=== PATIENT | male | born 1950 | race Caucasian/White ===

== ENCOUNTER 2022-04-28 09:06 | Outpatient (CLI) | payer OTHER, SELFPAY ==
--- NOTE | 2022-04-28 09:15 | MR_ITS ---
[address] [address] Phone:?[phone] Fax:?[phone] Referring Physician Information: Adria Mcelroy M.D. [address] [address] Phone:?[phone] Fax:?[phone] Patient:Johana Pineda D.O.B:?1950 Sex:?Male Phone:?[phone] [facility] MRN:?[id number] Exam Date:?04/28/2022 ? EXAM: MRI EXAMINATION OF THE RIGHT SHOULDER CLINICAL INFORMATION: Right shoulder pain. History of injury. History of surgery. Evaluate rotator cuff tear. TECHNICAL INFORMATION: Coronal STIR as well as axial, sagittal and coronal PD and T2-weighted images were acquired. INTERPRETATION: Bones: There is no Hill-Sachs impaction deformity. There are postsurgical changes of supraspinatus tendon repair surgery. No evidence for an occult fracture or AVN. Rotator Cuff: Series 8 images 7 and 8 demonstrate a 1.5 cm AP segment of full- thickness and near full-thickness tearing involving the mid to anterior supraspinatus tendon insertion. Tendon retraction is to approximately the mid humeral head level. There is no evidence for muscle belly atrophy. There is a 1.1 cm AP undersurface partial-thickness tear involving the anterior infraspinatus tendon which involves two thirds of the tendon fiber thickness. The teres minor tendon is intact. Broad full-thickness tear and apparent complete disruption of the expected subscapularis tendon insertion. There are moderate changes of subscapularis muscle belly atrophy. Coracoacromial arch: There is an apparent prior surgical change of acromioplasty. The bony acromiohumeral interval is measuring 7 mm. There is no thickening identified of the coracoacromial ligament. Acromioclavicular joint: There is an apparent prior surgical change involving the AC joint. No deformity of the underlying supraspinatus tendon. Biceps tendon: Absent visualization of the intra-articular long head biceps tendon in keeping with a more chronic disruption. Glenohumeral joint and labrum: There is a moderate glenohumeral joint effusion. Mild synovitis within the joint. Osteochondral surfaces appear relatively preserved. There is marked blunting involving the superior aspect of the labrum. Blunting is also identified throughout the anterior labrum. No discrete paralabral cyst is identified. CONCLUSION: 1. Postsurgical appearance of supraspinatus tendon repair surgery. There is a moderate-sized full-thickness and near full-thickness tear involving the mid to anterior supraspinatus tendon insertion with tendon retraction to the mid humeral head level. No muscle belly atrophy. 2. Broad full-thickness tear and apparent complete disruption of the subscapularis tendon. There are moderate changes of muscle belly atrophy. 3. There is a small to moderate-sized undersurface partial-thickness tear of the anterior infraspinatus tendon which involves two thirds of the tendon fiber thickness. 4. The subacromial space appears adequately decompressed following apparent prior surgical change of acromioplasty and partial AC joint resection. 5. Chronic intra-articular long head biceps tendon disruption. 6. No appreciable glenohumeral chondromalacia. There is a moderate joint effusion. KES Electronically signed on 04/28/2022 12:49:00 PM by Carlton Villafana M.D.
== END 2022-04-28 09:07 | disposition home or self-care (01) ==
PROVIDERS: Visit Provider Orthopaedic Surgery
DX: M25.511 Pain in right shoulder (principal); M75.101 Unspecified rotator cuff tear or rupture of right shoulder, not specified as traumatic; S46.911A Strain of unspecified muscle, fascia and tendon at shoulder and upper arm level, right arm, initial encounter; M25.411 Effusion, right shoulder
CPT/HCPCS: 73221

== ENCOUNTER 2022-08-06 11:23 | Day surgery (SDC) | payer OTHER, SELFPAY ==
--- NOTE | 2022-08-04 09:19 | PC.SOCIAL ---
Social work: Spoke with pt by phone regarding plans after surgery on 08/06/22. He states he is hoping to stay at the hospital overnight after surgery as he has no one to stay with him at home that night. He plans for his daughter to pick him up on Wednesday and stay with him that day to assist if needed. Pt is not concerned about ongoing care at home and was not expecting a facility stay. Pt states he has already discussed this concern with the physician and expects to stay at the hospital overnight. Pt is aware of how to contact social work job titles if needed.
[2022-08-06] VITALS (25 sets, daily range): BP systolic 81–122; BP diastolic 45–66; PULSE 45–65; RESP 12–16; TEMP 35.8–36.7; O2SAT 91–97; BMI 26.4
[2022-08-06] MEDS: LACTATED RINGERS 1000 ML 1,000 ML 100 ML IV ×2 (12:15→14:00)
[2022-08-06] MEDS: SODIUM CHLORIDE 0.9 % (FLUSH) 10 ML SYRINGE IVF (12:15)
[2022-08-06] MEDS: OXYCODONE (CR) 10 MG TAB.ER.12H PO (12:25)
[2022-08-06] MEDS: ACETAMINOPHEN 500 MG TABLET 1000 MG PO (12:25)
[2022-08-06] MEDS: fentaNYL 100 MCG/2 ML inj IVP (12:28)
[2022-08-06] MEDS: CELECOXIB 200 MG CAPSULE PO (12:28)
[2022-08-06] MEDS: MIDAZOLAM HCL 1 MG/ML inj IVP (12:30)
--- NOTE | 2022-08-06 12:58 | SUR.PREOP ---
TIME?OUT:?1226 PT/RN/MDA?VERIFICATION?OF?SURGICAL?SITE,?PROCEDURE,?AND?CONSENT OBTAINED?PRIOR?TO?INVASIVE?PROCEDURE. All in agreement.
[2022-08-06] MEDS: CEFAZOLIN 2 GM INJ IVP (12:59)
[2022-08-06] MEDS: EPINEPHrine 1 MG in SODIUM CHLORIDE IRRIG SOLUTION 3,000 ML 9,003 MG IRRIGATION ×3 (13:25→14:15)
--- NOTE | 2022-08-06 14:47 | W.ANESCHARGE ---
Anesthesia Charges Start Date/Time Anesthesia Start Date: 08/06/22 Anesthesia Start Time: 12:51 Stop Date/Time Anesthesia Stop Date: 08/06/22 Anesthesia Stop Time: 15:23 Summary Emergency: No Extremes of Age: Over 72-CPT 74774
--- NOTE | 2022-08-06 14:47 | W.PM.NB ---
Nerve Block Nerve Block Date Seen: 08/06/22 Type of block requested by surgeon for post-operative analgesia: interscalene Side: right Time out performed: Yes Verification of patient name: Yes Verification of date of : Yes Site marking: site marked Name of person performing procedure: Robert Assistants, if any: Collin Continuous monitoring Was continuous monitoring of O2 sat, B/P, reactor fueling supervisor, recorded every 15 minutes?: Yes Procedure Checklist: sterile prep, needles and gloves Ultrasound guided. Images saved: Yes Medications given in 5ml increments after negative aspiration: Ropivicaine %: 0.5 mL: 20 Needle gauge: 22 Decadron (mg): 10 Precedex (mcg): 25 Patient tolerated procedure well: Yes Block Charges Block Charge (with Pro Fee): Brachial Plexus Use of Ultrasound Machine for Block: Yes- US Guidance/pain block
--- NOTE | 2022-08-06 15:08 | P.ORPRC_ITS ---
Procedure Note Date of procedure: 08/06/22 Procedure: SURGEON: Adria Mcelroy MD MANUFACTURING ASSEMBLER: SAAD Yuen PREOPERATIVE DIAGNOSIS: Recurrent Right shoulder rotator cuff tear POSTOPERATIVE DIAGNOSIS: Recurrent Right shoulder rotator cuff tear NAME OF OPERATION: Right shoulder arthroscopic partial rotator cuff repair, mini open partial rotator cuff repair, lysis of adhesions, glenohumeral joint debridement ANESTHESIA: Supraclavicular block plus general endotracheal ESTIMATED BLOOD LOSS: 5 mL COMPLICATIONS: None SPECIMENS: None DRAINS: None PREOPERATIVE ANTIBIOTICS: Ancef 2 grams INDICATIONS: The patient is a 72-year-old male with a history of right shoulder pain secondary to the above diagnoses. Despite appropriate non operative management, they continue to have symptoms. Operative intervention was recommended. The risks, benefits and expected outcomes were discussed in detail. These included but were not limited to: Infection, bleeding, injury to blood vessel or nerve, venous thromboembolism. All questions were answered to their satisfaction. PROCEDURE: A supraclavicular block was placed by Anesthesia. General anesthesia was administered. The patient was placed in the high beach chair position. The right shoulder was prepped and draped in the usual sterile fashion. The glenohumeral joint was infiltrated with 20 mL of normal saline with epinephrine. The posterior portal was established, the arthroscope was introduced. The anterior portal was established, Diagnostic arthroscopy was performed with findings as follows: The biceps is torn and retracted out of the field of view. The anterior, posterior and superior labrum are normal. Articular surfaces on the humeral head and glenoid showed diffuse grade 2/3 change. There are no loose bodies. There is a full-thickness tear of the supraspinatus, infraspinatus and subscap with retraction. The joint was debrided with the shaver. The arthroscope was placed in the subacromial space, the lateral portal was established. The Arthrex Ferron was used to dissect the acromion free. There is a marked amount of scar covering the acromion which was mobilized with the Ferron. An accessory anterolateral portal was placed. The subacromial/subdeltoid bursa was aggressively debrided. There is a full-thickness tear of the supraspinatus, infraspinatus and subscap with retraction near the glenoid. The cough is not mobile. It was mobilized on the bursal surface with the elevator. It was mobilized on the joint surface with Ferron and the elevator. We then placed 3 margin convergence sutures using the scorpion. Arthroscopic knot tying was done. This advanced apex of the rotator cuff tear nearly to the anatomic footprint. Arthroscopic instruments were removed. The accessory anterolateral portal was extended proximally and distally, subcutaneous dissection was taken with electrocautery to the deltoid. The deltoid was divided in line with its fibers. The static retractor was placed. The subacromial/subdeltoid bursa was debrided with the Dangelo scissors. The greater tuberosity was debrided to punctate bleeding bone using the arthroscopic rongeur. Two Arthrex BioComposite SwiveLock anchors were placed just off the articular surface. Both limbs of the FiberWire and fiber tape were passed using the scorpion. A fiber link was placed in the leading edge of the rotator cuff x2. While attempting to pass FiberTape in the anterior anchor, the sutures securing the entire anterior leaflet of rotator cuff pulled through. This anterior leaflet was quite poor quality tissue and retracted anteriorly and medially and was now irreparable. The posterior leaflet of the rotator cuff tear was far better quality tissue. Therefore, we elected to proceed with a partial repair. We tied the posterior anchor FiberWire sutures over the rotator cuff. We then bridged the taped in this anchor and fiber links on the leading edge of the rotator cuff to a single, lateral roll SwiveLock anchor. This provides a partial repair of the posterior aspect of the rotator cuff, primarily the infraspinatus. There is no tension on the repair with the shoulder at 0? abduction. The wound was irrigated with normal saline off the pump. The deltoid was repaired with an 0 Vicryl in an interrupted [id number] fashion. Subcutaneous tissues were closed with a 3-0 Vicryl. Skin was closed with a 3-0 Monocryl in a subcuticular fashion. A dry dressing, polar care and sling were applied. Sponge and needle counts were correct x2. The patient tolerated the procedure well. There were no apparent complications. They were carefully transferred to the hospital bed and taken to the postanesthesia care unit in satisfactory condition. PLAN: The patient will be discharged to home. Active range of motion of the shoulder will be allowed when comfortable. He can use the sling as needed for discomfort. They can work on active range of motion of the elbow, wrist and fingers. They will follow up in the office next week for a wound check.
--- NOTE | 2022-08-06 15:24 | W.ANESCHARGE ---
Anesthesia Charges Start Date/Time Anesthesia Start Date: 08/06/22 Anesthesia Start Time: 12:51 Stop Date/Time Anesthesia Stop Date: 08/06/22 Anesthesia Stop Time: 15:23 Summary Emergency: No Extremes of Age: Over 72-CPT [address]
--- NOTE | 2022-08-06 16:06 | SUR.PHASEI ---
Patient was approved to go to Med Surg by Jeanmarie Corey CRNA with having hypotension but remaining stable and asymptomatic.
--- NOTE | 2022-08-06 18:05 | PM.IMCN1 ---
Date of Consult Patient: Emily Patient Consult date: 08/06/22 Primary Care Provider: Huey Spencer MD Consult Narrative Reason for consult: Medical management of comorbidities Narrative: Danny Pineda is a 72 year old male who presented to the hospital today for an elective Right shoulder arthroscopic partial rotator cuff repair, mini open partial rotator cuff repair, lysis of adhesions, and glenohumeral joint debridement with Dr. Mcelroy of Orthopedic Surgery. There were no surgical or anesthetic complications noted during procedure. Patient's H&P reviewed, PCP is Dr. Spencer at [facility]. No concerns identified on preoperative H&P, outpatient blood pressure 110/62. Past medical history significant for: History of a thoracic aortic aneurysm repair, aortic valve repair with bioprosthetic valve, melanoma of the right elbow, esophageal stricture (s/p dilation x3) and diverticulosis. He had a diverticular bleed in 2014, requiring blood transfusions. History of blood clots: No Postoperative plan: Home with daughter for assistance as needed. Patient is generally healthy, takes no daily prescription medications. 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 He is a nonsmoker, nonalcohol user. Review of Systems Status of ROS: Reports: 10 or more systems reviewed and unremarkable except as noted in History and below 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) Status post right rotator cuff repair (08/20/06) Social History Smoking Status: Never smoker How often do you have a drink containing alcohol: never AUDIT-C Alcohol total score: 0 Non-prescribed substance use: denies use Caffeine: No service: No Meds Home Medications and Allergies Home Medications Medication Instructions Recorded Confirmed Type ascorbic acid (vitamin C) 500 mg 500 mg PO DAILY 08/04/22 08/06/22 History tablet aspirin 81 mg chewable tablet 1 tab PO DAILY 08/04/22 08/06/22 History fluorouracil 5 % topical cream 1 applic topical BID 08/04/22 08/04/22 History (Efudex) lysine 500 mg tablet 500 mg PO BID 08/04/22 08/06/22 History omega 5-ysf-net-fish oil 300 1 cap PO DAILY 08/04/22 08/04/22 History mg-1,000 mg capsule (Fish Oil) phytonadione (vitamin K1) 100 mcg 100 mcg PO DAILY 08/04/22 08/06/22 History tablet potassium gluconate 595 mg (99 mg) 595 mg PO DAILY 08/04/22 08/06/22 History tablet tadalafil 10 mg tablet mg PRN PRN 08/04/22 History vitamin B complex 1 cap PO DAILY 08/04/22 08/06/22 History vitamin E (dl, acetate) 180 mg 180 mg PO DAILY 08/04/22 08/06/22 History (400 unit) capsule zinc sulfate 50 mg zinc (220 mg) 50 mg PO DAILY 08/04/22 08/06/22 History capsule Allergies Allergy/AdvReac Type Severity Reaction Status Date / Time codeine Allergy Mild GI upset Verified 05/06/22 13:51 Exam Narrative: Exam Narrative: GEN: Alert and oriented, nontoxic HEENT: Normal external ears, EOMIs bilaterally CV: RRR R: LCTA bilaterally without concerning wheezing, rales, or rhonchi Ext: wwp, no concerning edema, wearing sling on right upper extremity Skin: No concerning skin lesions or rashes on exposed skin Neuro: Nonfocal Psych: Appropriate Const: Vital Signs, click to edit/add: Vital Signs - 24 hr 08/06/22 12:23 08/06/22 12:33 08/06/22 12:37 Temperature 98.0 F Pulse Rate 65 45 L 49 L Pulse Rate [Left P ulse Oximeter] Respiratory Rate 16 16 16 Blood Pressure 122/65 118/63 113/66 Blood Pressure [Le ft Arm] Pulse Oximetry 96 96 96 Oxygen Delivery Me thod Room Air Nasal Cannula Room Air Oxygen Flow Rate 2 2 08/06/22 15:19 08/06/22 15:25 08/06/22 15:30 Temperature 97.4 F L Pulse Rate 60 64 57 L Pulse Rate [Left P ulse Oximeter] Respiratory Rate 14 14 12 Blood Pressure 99/53 L 97/55 L 91/55 L Blood Pressure [Le ft Arm] Pulse Oximetry 92 92 93 Oxygen Delivery Me thod Room Air Room Air Room Air Oxygen Flow Rate 08/06/22 15:35 08/06/22 15:45 08/06/22 16:05 Temperature 97.8 F Pulse Rate 57 L 57 L 56 L Pulse Rate [Left P ulse Oximeter] Respiratory Rate 12 12 12 Blood Pressure 95/55 L 91/56 L 96/52 L Blood Pressure [Le ft Arm] Pulse Oximetry 92 92 94 Oxygen Delivery Me thod Room Air Room Air Room Air Oxygen Flow Rate 08/06/22 15:40 08/06/22 15:50 08/06/22 15:55 Temperature Pulse Rate 57 L 55 L 56 L Pulse Rate [Left P ulse Oximeter] Respiratory Rate 12 12 12 Blood Pressure 93/51 L 87/54 L 99/54 L Blood Pressure [Le ft Arm] Pulse Oximetry 92 92 93 Oxygen Delivery Me thod Room Air Room Air Room Air Oxygen Flow Rate 08/06/22 16:00 08/06/22 16:14 08/06/22 16:20 Temperature 97.3 F L 96.8 F L Pulse Rate 58 L 56 L Pulse Rate [Left P ulse Oximeter] Respiratory Rate 12 12 Blood Pressure 81/56 L Blood Pressure [Le ft Arm] 97/57 L 93/54 L Pulse Oximetry 93 94 Oxygen Delivery Me thod Room Air Room Air Oxygen Flow Rate 08/06/22 16:45 08/06/22 17:00 08/06/22 17:15 Temperature 97.1 F L 96.6 F L 96.4 F L Pulse Rate Pulse Rate [Left P ulse Oximeter] 51 L 53 L 49 L Respiratory Rate 12 12 14 Blood Pressure Blood Pressure [Le ft Arm] 89/58 L 101/61 103/61 Pulse Oximetry 92 95 91 Oxygen Delivery Me thod Room Air Room Air Room Air Oxygen Flow Rate Assessment and Plan Assessment and plan (1) S/P rotator cuff repair: Status: Acute Plan - prophylaxis and pain management per Orthopedic surgery team - comorbidities as noted above are stable - no daily home prescription medications to continue - anticipate routine postoperative course
--- NOTE | 2022-08-06 19:28 | PC.NURSE ---
End of Shift: Patient pleasant and cooperative. Patient hypotensive but stable, MD notified, bolus ordered. Lung clear, BS WNL, IV intact. Patient ambulated to the toilet urinated 400. Patient tolerating regular diet. Patient denied pain. Cryocuff applied to right should, 1 meplix with small amount of blood to reinforcement needed.
[2022-08-06] MEDS: MELATONIN 3 MG TABLET PO (22:00)
--- NOTE | 2022-08-06 22:49 | PC.NURSE ---
Shift [id number]- Patient denies pain- is still numb/tingly. Radial pulse present, extremity is warm. He walks in hallway with RN as SBA and tolerates well. Cryocuff applied to shoulder. MD updated about blood pressures- order for bolus provided, however MD is ok to hold.
[2022-08-06] MEDS: 0.9 % SODIUM CHLORIDE 500 ML 500 ML IV (23:35)
--- NOTE | 2022-08-07 02:36 | PC.NURSE ---
End of Shift: Patient pleasant and cooperative. Afebrile. Denies pain. CMS intact. Drainage to dressing has not increased from outline. BP 88/57, MD updated and 500 mL bolus given.
[2022-08-07 03:00] VITALS: BP 91/56; PULSE 51; RESP 16; O2SAT 95
--- NOTE | 2022-08-07 05:51 | PC.NURSE ---
End of Shift: Patient has done well. Slept most of the night. Up with SBA will be discharging home later today.
--- NOTE | 2022-08-07 12:35 | PC.NURSE ---
DISCHARGE: Pt. pleasant and cooperative. Afebrile. Denies pain. CMS intact. Drainage to dressing has not increased from outline. C/D/I. VSS Pt. IV removed intact. Pt. discharge instructions signed. Pt. Discharged at 1200 accompanied by dtr.
== END 2022-08-07 12:00 | disposition home or self-care (01) ==
LOC: OR 11:24 → MEDSURG 11:29
PROVIDERS: PCP Family Medicine; Visit Provider Orthopaedic Surgery
PROC: (CPT 23412; principal; 2022-08-06 13:30)
DX: M75.121 Complete rotator cuff tear or rupture of right shoulder, not specified as traumatic (principal)
CPT/HCPCS: 29826; 23412; 29822; 1630; 64415; 76942; 99100; A9270; C1713; J0171; J0330; J0690; J1100; J2250; J2370; J2405; J2704; J2795; J3010; J7120

== ENCOUNTER 2022-11-19 09:54 | Day surgery (SDC) | payer OTHER, SELFPAY ==
[2022-11-18 15:05] VITALS: BP 107/56; PULSE 63; RESP 16; TEMP 36.3; O2SAT 94
[2022-11-19] VITALS (28 sets, daily range): BP systolic 88–125; BP diastolic 42–85; PULSE 45–92; RESP 14–18; TEMP 36.2–37.3; O2SAT 92–100; BMI 27.1
[2022-11-19] MEDS: LACTATED RINGERS 1000 ML 1,000 ML 100 ML IV (10:00)
[2022-11-19] MEDS: ACETAMINOPHEN 500 MG TABLET 1000 MG PO ×2 (10:37→19:48)
[2022-11-19] MEDS: CELECOXIB 200 MG CAPSULE PO (10:37)
[2022-11-19] MEDS: OXYCODONE (CR) 10 MG TAB.ER.12H PO (10:38)
[2022-11-19] MEDS: fentaNYL 100 MCG/2 ML inj IVP (11:28)
--- NOTE | 2022-11-19 11:52 | SUR.PREOP ---
TIME?OUT:?1126 PT/Kacie Farah, /Dr. Robert MDA?VERIFICATION?OF?SURGICAL?SITE right shoulder,?PROCEDURE,?AND?CONSENT OBTAINED?PRIOR?TO?INVASIVE?PROCEDURE.
[2022-11-19] MEDS: CEFAZOLIN 2 GM INJ IVP (12:15)
--- NOTE | 2022-11-19 13:36 | CRLHL7_ITS ---
For Patients: As a result of the Cures Act, medical imaging exams and procedure reports are released immediately into your electronic medical record. You may view this report before your referring provider. If you have questions, please contact your health care provider. Indication: Postop reverse shoulder arthroplasty Technique: Two views right shoulder Findings/Impression: Hardware from a right reverse total shoulder arthroplasty is in satisfactory position. Bone alignment is normal. No sign of acute fracture. Postop changes are within normal limits. Dictated by Trey Benito MD @ 11/19/2022 2:55:31 PM (Electronically Signed)
--- NOTE | 2022-11-19 13:39 | PM.ORPRC ---
Procedure Note Date of procedure: 11/19/22 Procedure: PREOPERATIVE DIAGNOSIS: Right shoulder rotator cuff tear arthropathy POSTOPERATIVE DIAGNOSIS: Right shoulder rotator cuff tear arthropathy NAME OF OPERATION: Right upper extremity reverse shoulder arthroplasty SURGEON: Adria Mcelroy MD ORCHARD MANAGER: Lizette Mahan PA-C ANESTHESIA: General endotracheal ESTIMATED BLOOD LOSS: 200 mL COMPLICATIONS: None SPECIMENS: None DRAINS: None PREOPERATIVE ANTIBIOTICS: Ancef 2 grams IMPLANTS: 1. Tornier 25mm x 40 mm baseplate 2. 36mm standard glenosphere 3. 4B humeral stem 4. High eccentric +0 humeral tray 5. 36mm +6 polyethylene INDICATIONS: The patient is a 72-year-old with a longstanding history of severe, unrelenting right shoulder pain secondary to rotator cuff tear arthropathy. Despite appropriate nonoperative management, including activity modification, anti-inflammatories, [id number] pain medication, physical therapy, and injections they continue to have pain and disability. Operative intervention was offered. The risks, benefits and expected outcomes were discussed in detail. These included but were not limited to: Infection, bleeding, injury to blood vessel or nerve, venous thromboembolism. All questions were answered to their satisfaction. Use of an specimen preparation assistant was necessary throughout the case for patient positioning and safety, soft tissue retraction, and closure. PROCEDURE: General anesthesia was administered. The patient was placed in the lazy beach chair position on the operating room table. The right upper extremity was prepped and draped in the usual sterile fashion. A standard deltopectoral incision was made. Subcutaneous dissection was taken with electrocautery to the deltopectoral interval. The cephalic vein was mobilized, lateral branches were cauterized. The vein was cauterized and divided. We bluntly entered the deltopectoral interval. We freed up the deltoid. The upper 1/3 of the insertion of the pectoralis was divided with cautery. The static retractor was placed. The clavipectoral fascia and CA ligament were divided. The circumflex vessels were controlled with electrocautery. The biceps was dissected out of the bicipital groove, was tagged with a #2 FiberWire suture and divided proximally. The subscap was torn and retracted medially with poor excursion. Two fiberWire sutures were placed in the subscapularis. It was freed up on both sides with little, if any, improvement in the excursion. The humeral head was delivered into the wound. The intramedullary humeral cutting guide was placed. We made the cut at the anatomic neck, in 30? of retroversion. Humeral sounds were used to assess the diameter of the canal. The broach was placed and had good rotational stability. The calcar reamer was used and the protective base plate cover was placed. Attention was then turned to the glenoid. Hohmann retractors were placed posteriorly. The labrum and biceps stump were sharply debrided. The origin of the inferior glenohumeral ligaments were subperiosteally released off of the glenoid. The drill guide was placed. The guide pin was placed in 0? of cephalic tilt. The reamer was used to bleeding bone. The central drill was used x2. The tap was used. The standard base plate was placed. This had excellent purchase. Locking screws were placed. The glenosphere was placed, the set screw was tightened. Attention then returned to the humerus. We placed a high eccentric standard base plate and standard poly. We reduced the shoulder and took it through a range of motion. It was found to be stable with appropriate soft tissue tension. Trial humeral components were removed. The biceps was tenodesed in the bicipital groove with drill holes and our previously placed FiberWire suture. We placed #2 FiberWire sutures in the lesser tuberosity for subsequent subscap repair. We assembled the humeral component on the back table. We placed it in the center of our subscapularis repair sutures and tapped it down to our humeral cut. This had excellent purchase. The shoulder was reduced and again was found to be stable with appropriate soft tissue tension. We did a 3 min dilute Betadine solution soak. We irrigated the wound with 3 L of normal saline via pulse lavage. We attempted to repair the subscapularis to the lesser tuberosity with our previously placed FiberWire sutures. The deltopectoral interval was loosely reapproximated with an 0 Vicryl in an interrupted [id number] fashion. Subcutaneous tissues were closed with the 2-0 Vicryl and a running 3-0 Monocryl suture. The skin was sealed with glue. A dry dressing and sling were applied. Sponge and needle counts were correct x2. The patient tolerated the procedure well, there were no apparent complications. They were awakened and extubated in the operating room, taken to the postanesthesia care unit in satisfactory condition. PLAN: The patient will be mobilized with physical therapy. The sling will be used for 6 weeks postoperatively. Active range of motion in forward flexion and abduction as tolerates. No external rotation greater than 0? for 6 weeks postoperatively. They will be discharged to home once medically appropriate.
--- NOTE | 2022-11-19 14:11 | W.ANESCHARGE ---
Anesthesia Charges Start Date/Time Anesthesia Start Date: 11/19/22 Anesthesia Start Time: 11:48 Stop Date/Time Anesthesia Stop Date: 11/19/22 Anesthesia Stop Time: 14:16
--- NOTE | 2022-11-19 14:18 | W.ANESCHARGE ---
Anesthesia Charges Start Date/Time Anesthesia Start Date: 11/19/22 Anesthesia Start Time: 11:48 Stop Date/Time Anesthesia Stop Date: 11/19/22 Anesthesia Stop Time: 14:16 Summary Extremes of Age - Over 70 or under 1: MDA
--- NOTE | 2022-11-19 14:19 | W.PM.NB ---
Nerve Block Nerve Block Time Seen by Provider: 11:35 Date Seen: 11/19/22 Type of block requested by surgeon for post-operative analgesia: supraclavicular Side: right Time out performed: Yes Verification of patient name: Yes Verification of date of : Yes Site marking: site marked Name of person performing procedure: Robert Continuous monitoring Was continuous monitoring of O2 sat, B/P, bus driver/monitor, recorded every 15 minutes?: Yes Procedure Checklist: sterile prep, needles and gloves Ultrasound guided. Images saved: Yes Medications given in 5ml increments after negative aspiration: Ropivicaine %: 0.5 mL: 20 Needle gauge: 22 Decadron (mg): 10 Precedex (mcg): 25 Patient tolerated procedure well: Yes Block Charges Block Charge (with Pro Fee): Brachial Plexus Use of Ultrasound Machine for Block: Yes- US Guidance/pain block
[2022-11-19] MEDS: ePHEDrine sulfate 5 MG/ML inj IVP ×2 (14:24→14:46)
--- NOTE | 2022-11-19 14:57 | PC.NURSE ---
PER Emelina Villegas, MEDICAL RECORDS SPECIALIST approved to take patient back with BP being hypotensive.
[2022-11-19] MEDS: LACTATED RINGERS 1000 ML 1,000 ML 35 ML IV (15:10)
[2022-11-19] MEDS: LACTATED RINGERS 1000 ML 1,000 ML 75 ML IV (16:17)
--- NOTE | 2022-11-19 16:37 | P.IMCN_ITS ---
Date of Consult Consult date: 11/19/22 Primary Care Provider: Huey Spencer MD Consult Narrative Narrative: Danny Pineda is a 72 year old male who presented to the hospital today for an elective Right upper extremity reverse shoulder arthroplasty for history of R rotator cuff tear arthropathy. There were no surgical or anesthetic complications noted during procedure. Patient's H&P reviewed, PCP is Dr. Spencer at [facility]. Past medical history significant for: History of thoracic aortic aneurysm repair, aortic valve repair, esophageal stricture, diverticulosis. On no daily prescription medications. History of blood clots: No Postoperative plan: Home, daughter lives close and will help as needed Review of Systems Status of ROS: Reports: 10 or more systems reviewed and unremarkable except as noted in History and below 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 Lives alone, daughter within 5 blocks. Smoking Status: Never smoker Do you use any of these nicotine containing products: None How often do you have a drink containing alcohol: never AUDIT-C Alcohol total score: 0 Non-prescribed substance use: denies use Caffeine: No service: No Meds Home Medications and Allergies Home Medications Medication Instructions Recorded Confirmed Type ascorbic acid (vitamin C) 500 mg 500 mg PO DAILY 08/04/22 09/29/22 History tablet aspirin 81 mg chewable tablet 1 tab PO DAILY 08/04/22 09/29/22 History fluorouracil 5 % topical cream 1 applic topical BID 08/04/22 09/29/22 History (Efudex) lysine 500 mg tablet 500 mg PO BID 08/04/22 09/29/22 History omega 4-hpj-yuc-fish oil 300 1 cap PO DAILY 08/04/22 09/29/22 History mg-1,000 mg capsule (Fish Oil) phytonadione (vitamin K1) 100 mcg 100 mcg PO DAILY 08/04/22 09/29/22 History tablet potassium gluconate 595 mg (99 mg) 595 mg PO DAILY 08/04/22 09/29/22 History tablet tadalafil 10 mg tablet mg PRN PRN 08/04/22 08/19/22 History vitamin B complex 1 cap PO DAILY 08/04/22 09/29/22 History vitamin E (dl, acetate) 180 mg 180 mg PO DAILY 08/04/22 09/29/22 History (400 unit) capsule zinc sulfate 50 mg zinc (220 mg) 50 mg PO DAILY 08/04/22 09/29/22 History capsule Allergies Allergy/AdvReac Type Severity Reaction Status Date / Time codeine Allergy Mild GI upset Verified 08/19/22 13:07 Exam Narrative: Exam Narrative: GEN: Alert and oriented, laying comfortably in bed HEENT: Pupils miotic, EOMIs bilaterally, no scleral icterus CV: RRR, No concerning murmurs R: LCTA bilaterally without concerning wheezing, air movement adequate Ext: wwp, no concerning edema Skin: No concerning skin lesions or rashes on exposed skin Neuro: Nonfocal Psych: Appropriate Const: Vital Signs, click to edit/add: Vital Signs - 24 hr 11/19/22 10:40 11/19/22 11:26 11/19/22 11:30 Temperature 99.2 F Pulse Rate 52 L 47 L 47 L Pulse Rate [Pulse Oximeter] Respiratory Rate 14 14 14 Blood Pressure 112/72 125/85 123/70 Blood Pressure [Le ft Arm] Pulse Oximetry 98 100 100 Oxygen Delivery Me thod Room Air Nasal Cannula Nasal Cannula Oxygen Flow Rate 2 2 11/19/22 11:35 11/19/22 14:11 11/19/22 14:35 Temperature 97.2 F L Pulse Rate 45 L 53 L 61 Pulse Rate [Pulse Oximeter] Respiratory Rate 14 14 14 Blood Pressure 119/66 97/48 L 98/51 L Blood Pressure [Le ft Arm] Pulse Oximetry 100 98 96 Oxygen Delivery Me thod Nasal Cannula OxyMask Room Air Oxygen Flow Rate 2 8 11/19/22 14:40 11/19/22 14:15 11/19/22 14:18 Temperature Pulse Rate 65 52 L 58 L Pulse Rate [Pulse Oximeter] Respiratory Rate 14 14 14 Blood Pressure 89/48 L 91/49 L 91/49 L Blood Pressure [Le ft Arm] Pulse Oximetry 96 100 100 Oxygen Delivery Me thod Room Air OxyMask OxyMask Oxygen Flow Rate 8 8 11/19/22 14:20 11/19/22 14:24 11/19/22 14:26 Temperature Pulse Rate 59 L 58 L 60 Pulse Rate [Pulse Oximeter] Respiratory Rate 14 14 14 Blood Pressure 93/49 L 90/42 L 88/46 L Blood Pressure [Le ft Arm] Pulse Oximetry 99 99 99 Oxygen Delivery Me thod Room Air OxyMask OxyMask OxyMask Oxygen Flow Rate 8 8 8 11/19/22 14:30 11/19/22 14:43 11/19/22 14:45 Temperature Pulse Rate 49 L 63 64 Pulse Rate [Pulse Oximeter] Respiratory Rate 14 14 14 Blood Pressure 109/53 L 91/51 L 107/49 L Blood Pressure [Le ft Arm] Pulse Oximetry 99 94 95 Oxygen Delivery Me thod OxyMask Room Air Room Air Oxygen Flow Rate 11/19/22 14:50 11/19/22 14:55 11/19/22 15:20 Temperature 97.2 F L 97.2 F L Pulse Rate 57 L 56 L Pulse Rate [Pulse Oximeter] 58 L Respiratory Rate 14 14 16 Blood Pressure 96/57 L 105/54 L Blood Pressure [Le ft Arm] 94/55 L Pulse Oximetry 95 95 95 Oxygen Delivery Me thod Room Air Oxygen Flow Rate 11/19/22 15:35 11/19/22 15:50 11/19/22 16:05 Temperature 97.2 F L 97.1 F L 97.1 F L Pulse Rate Pulse Rate [Pulse Oximeter] 92 58 L 58 L Respiratory Rate 16 16 16 Blood Pressure Blood Pressure [Le ft Arm] 100/54 L 97/56 L 94/57 L Pulse Oximetry 92 94 94 Oxygen Delivery Me thod Room Air Room Air Room Air Oxygen Flow Rate 11/19/22 15:05 Temperature 97.3 F L Pulse Rate 63 Pulse Rate [Pulse Oximeter] Respiratory Rate 16 Blood Pressure Blood Pressure [Le ft Arm] 107/56 L Pulse Oximetry Oxygen Delivery Me thod Room Air Oxygen Flow Rate Assessment and Plan Assessment and plan (1) Status post replacement of right shoulder joint: Problem comment: - 11/19/22, Dr. Mcelroy Status: Acute Plan - pain management and prophylaxis per orthopedic surgery team - anticipate routine postoperative course
--- NOTE | 2022-11-19 19:23 | PC.NURSE ---
Pt arrived from PACU around 1505, pt is alert and oriented. IVF infusing at 125ml/hr. Vitals stable, soft BP sys 90s/50s, then to to low 100s sys. Pt on RA. Pt asymptomatic, provider aware. Pt denies pain, numbness to R arm, can feel designer/writer's touch to fingers. Pt voided into urinal. Diet advanced as tolerated and ate 100% of regular diet dinner. Up w/ Ax2 initially per protocol, but then amb in hallway w/ SBA w/o difficulty or device. Cryo wrap on while in bed, and SCD foot pumps on while in bed. Pt using incentive spirometer, reaching 2,250ml. Pt has call light within reach and able to use appropriately. States his daughter will visit him tomorrow.
[2022-11-19] MEDS: CEFAZOLIN 2 GM in 0.9 % SODIUM CHLORIDE Mini-bag 100 ML IVPB (19:48)
[2022-11-19] MEDS: SENNOSIDES 1 TAB TABLET 2 TAB PO (21:45)
[2022-11-20] MEDS: ACETAMINOPHEN 500 MG TABLET 1000 MG PO ×2 (00:43→05:54)
[2022-11-20 03:00] VITALS: BP 96/54; PULSE 57; RESP 18; TEMP 36.6; O2SAT 95
[2022-11-20] MEDS: CEFAZOLIN 2 GM in 0.9 % SODIUM CHLORIDE Mini-bag 100 ML IVPB (03:14)
--- NOTE | 2022-11-20 06:10 | PC.NURSE ---
Status [id number] Alert and oriented. Pleasant and cooperative. Denies pain. BP soft, pt asymptomatic. Afebrile. Remains on room air. Right arm remains numb and tingly. Receiving scheduled tylenol. LR at 75mL/hr overnight, saline locked this AM. Tolerating diet. Voiding without difficulty. No BM this shift. Up with stand by. Pt observed resting between cares.
[2022-11-20 06:34] LABS: Hematocrit 37.4 % (37.0-53.0); Hemoglobin* 12.7 gm/dL (13.5-17.5); Mean Corpuscular HGB Conc 34 gm/dL (32-36); Mean Corpuscular Hemoglobin 32 pg (26-34); Mean Corpuscular Volume 94 fL (80-100); Platelet Count* 162 K/uL (140-440); Red Blood Count 3.96 m/uL (4.30-5.90); White Blood Count* 12.57 K/uL (4.50-11.00)
[2022-11-20 06:35] LABS: Slide Review Reflex No
[2022-11-20 06:42] LABS: Potassium* 4.2 mmol/L (3.6-5.1); Sodium* 136 mmol/L (135-149)
[2022-11-20 06:45] LABS: Creatinine* 0.6 mg/dL (0.5-1.5); Est. Creatinine Clearance* 70.97; Estimated Glomerular Filt Rate 104 ml/min
[2022-11-20 06:46] LABS: Blood Urea Nitrogen* 13 mg/dL (7-30)
--- NOTE | 2022-11-20 08:10 | PM.ORPN ---
Subjective Subjective Time Seen by Provider: 07:45 Date Seen: 11/20/22 Principal diagnosis: S/P day 1 right reverse shoulder arthroplasty Interval history: Danny is doing well this morning and is resting comfortably in his recliner. Denies pain currently. Pain is well managed with acetaminophen and icing. Denies: fever, chills, chest pain, SOB. Patient has not yet been seen by Physical Therapy and Occupational Therapy. Patient has not yet had a bowel movement, but reports it is soon coming. Patient feels ready to be discharged to home later this morning. No acute events over night. Ortho Exam Narrative Exam Narrative: Incision/Dressing: Dressing appears clean and dry. No drainage present. Mepilex intact. Right shoulder appears moderately swollen but supple with no obvious erythema, fluctuance or excessive warmth. No ecchymosis. Ice is being utilized as needed. CMS: Intact distally with 2+ Radial pulse. Decreased sensation over deltoid. Sensation confirmed distally. Constitutional: Patient is alert and oriented x3. Patient is in no acute distress and converses without labored breathing. Patient is able to make decisions and demonstrates good insight. Patient is pleasant and cooperative. Affect is full range and appropriate for the circumstances. Other: Patient is wearing his cryo cuff and utilizing the sling during this visit. Const Vital Signs, click to edit/add: Vital Signs - 24 hr 11/19/22 10:40 11/19/22 11:26 11/19/22 11:30 Temperature 99.2 F Pulse Rate 52 L 47 L 47 L Pulse Rate [Pulse Oximeter] Respiratory Rate 14 14 14 Blood Pressure 112/72 125/85 123/70 Blood Pressure [Left Arm] Pulse Oximetry 98 100 100 Oxygen Delivery Method Room Air Nasal Cannula Nasal Cannula Oxygen Flow Rate 2 2 11/19/22 11:35 11/19/22 14:11 11/19/22 14:35 Temperature 97.2 F L Pulse Rate 45 L 53 L 61 Pulse Rate [Pulse Oximeter] Respiratory Rate 14 14 14 Blood Pressure 119/66 97/48 L 98/51 L Blood Pressure [Left Arm] Pulse Oximetry 100 98 96 Oxygen Delivery Method Nasal Cannula OxyMask Room Air Oxygen Flow Rate 2 8 11/19/22 14:40 11/19/22 14:15 11/19/22 14:18 Temperature Pulse Rate 65 52 L 58 L Pulse Rate [Pulse Oximeter] Respiratory Rate 14 14 14 Blood Pressure 89/48 L 91/49 L 91/49 L Blood Pressure [Left Arm] Pulse Oximetry 96 100 100 Oxygen Delivery Method Room Air OxyMask OxyMask Oxygen Flow Rate 8 8 11/19/22 14:20 11/19/22 14:24 11/19/22 14:26 Temperature Pulse Rate 59 L 58 L 60 Pulse Rate [Pulse Oximeter] Respiratory Rate 14 14 14 Blood Pressure 93/49 L 90/42 L 88/46 L Blood Pressure [Left Arm] Pulse Oximetry 99 99 99 Oxygen Delivery Method Room Air OxyMask OxyMask OxyMask Oxygen Flow Rate 8 8 8 11/19/22 14:30 11/19/22 14:43 11/19/22 14:45 Temperature Pulse Rate 49 L 63 64 Pulse Rate [Pulse Oximeter] Respiratory Rate 14 14 14 Blood Pressure 109/53 L 91/51 L 107/49 L Blood Pressure [Left Arm] Pulse Oximetry 99 94 95 Oxygen Delivery Method OxyMask Room Air Room Air Oxygen Flow Rate 11/19/22 14:50 11/19/22 14:55 11/19/22 15:20 Temperature 97.2 F L 97.2 F L Pulse Rate 57 L 56 L Pulse Rate [Pulse Oximeter] 58 L Respiratory Rate 14 14 16 Blood Pressure 96/57 L 105/54 L Blood Pressure [Left Arm] 94/55 L Pulse Oximetry 95 95 95 Oxygen Delivery Method Room Air Oxygen Flow Rate 11/19/22 15:35 11/19/22 15:50 11/19/22 16:05 Temperature 97.2 F L 97.1 F L 97.1 F L Pulse Rate Pulse Rate [Pulse Oximeter] 92 58 L 58 L Respiratory Rate 16 16 16 Blood Pressure Blood Pressure [Left Arm] 100/54 L 97/56 L 94/57 L Pulse Oximetry 92 94 94 Oxygen Delivery Method Room Air Room Air Room Air Oxygen Flow Rate 11/19/22 15:05 11/19/22 17:05 11/19/22 18:05 Temperature 97.3 F L 97.6 F 97.3 F L Pulse Rate 63 Pulse Rate [Pulse Oximeter] 63 70 Respiratory Rate 16 16 16 Blood Pressure Blood Pressure [Left Arm] 107/56 L 102/56 L 109/69 Pulse Oximetry 95 96 Oxygen Delivery Method Room Air Room Air Room Air Oxygen Flow Rate 11/19/22 19:05 02/16/23 20:05 11/19/22 21:05 Temperature 98.2 F 98.2 F 98 F Pulse Rate Pulse Rate [Pulse Oximeter] 71 70 71 Respiratory Rate 16 16 16 Blood Pressure Blood Pressure [Left Arm] 104/59 L 111/56 L 112/61 Pulse Oximetry 95 94 94 Oxygen Delivery Method Room Air Room Air Room Air Oxygen Flow Rate 11/19/22 19:05 11/19/22 23:00 11/20/22 03:00 Temperature 98.2 F 98.9 F 98 F Pulse Rate Pulse Rate [Pulse Oximeter] 71 71 57 L Respiratory Rate 16 18 18 Blood Pressure Blood Pressure [Left Arm] 104/59 L 96/55 L 96/54 L Pulse Oximetry 95 94 95 Oxygen Delivery Method Room Air Room Air Room Air Oxygen Flow Rate Documenting provider has reviewed patient's vital signs: yes Assessment and Plan Assessment and plan (1) Status post replacement of right shoulder joint: Problem details: DOS: 11/19/22, Dr. Mcelroy Status: Acute Assessment and Plan: Sling use x 6 weeks postoperative. May remove to work on elbow/hand/wrist ROM. No external rotation of the right shoulder past 0? x 6 weeks. Forward flexion and abduction of the right shoulder is allowed as tolerated. For pain management, Oxycodone and acetaminophen PRN in addition to frequent icing. Minimize use of narcotics. Dressing is waterproof. May shower. Surgical glue covers the wound. Follow-up appointment in one week with a MOLLY. Eladio encouraged Danny to start a list of questions and bring it to this appointment. Follow-up with Dr. Mcelroy at 6 weeks postoperative. Phone Orthopedics with any questions or concerns.
[2022-11-20 08:18] VITALS: BP 102/55; PULSE 53; RESP 18; TEMP 36.8; O2SAT 99
--- NOTE | 2022-11-20 09:30 | REH.PT ---
Pt declined PT Evaluation & Treatment. Has had several prior RTC repairs and prior L TSA. Reports he feels comfortable with post op protocol and demonstrates steady ind amb without an AD. Declines stair amb. D/C PT orders.
[2022-11-20 09:32] VITALS: BP 105/54; PULSE 63; RESP 18; TEMP 36.8
--- NOTE | 2022-11-20 10:43 | PC.NURSE ---
shift note: pt up indept in room. pt needing minimal assist with drsg upper body due to rt shoulder repair. Pt states rt arm and hand tingling but can feel touch. radial pulse to rt u/e intact. cap refill intact. Pt has sling in place. Rt shoulder drsg c/d/i with ice to site. Reviewed dc instructions with pt. Questions addressed regarding pain and radha socks. Copies of dc instructions sent with pt at [place]. Removed Lt FA IV intact. Pt dc'd prior to last dose of antibiotic. No 3rd dose given of antibiotic. Belongings sent with pt at [place].
--- NOTE | 2022-11-20 10:53 | REH.OT ---
Orders received for OT eval and treat. Patient had previous LTSA in 07/24. Patient declined need for OT intervention. no charge.
--- NOTE | 2022-11-20 13:19 | P.DS_ITS ---
DS: Providers Provider Time Seen by Provider: 08:00 Date Seen: 11/20/22 Date of admission: 11/19/2022 Primary care physician: Huey Spencer MD Admitting Clinician: Adria Mcelroy MD Consults: 11/19/22 15:28 Consult to Occupational Therapy [CONS] Routine Comment: Reason(s) for OT Consult:: Evaluate and Treat Any Restrictions?:: See Comment Consult to Physical Therapy [CONS] Routine Comment: Reason(s) for PT Consult:: Evaluate and Treat Any Restrictions?:: See Comment Consult to Physician [CONS] Routine Comment: Consulting Provider: Hospitalists Has provider been notified: No Consult to [employer] [CONS] Routine Comment: Reason for Consult:: Discharge Planning Needs Attending Physician on discharge: Adria Mcelroy MD Date of Discharge: 11/20/22 DS: Diagnosis Discharge Diagnosis (1) S/P rotator cuff repair: Status: Acute Problem details: Right shoulder arthroscopic partial rotator cuff repair, mini open partial rotator cuff repair, lysis of adhesions, glenohumeral joint debridement (08/06/2022, Dr. Mcelroy) (2) Status post replacement of right shoulder joint: Status: Acute Problem details: DOS: 11/19/22, Dr. Mcelroy DS: Summary Hospital Course Hospital Course: 72-year-old man presented for an elective right reverse shoulder arthroplasty. This is undertaken uneventfully without any apparent complications. Status at Discharge Functional status at discharge: independent ambulation Overall status at discharge: patient is progressing back to baseline Time Spent with Patient Time attestation: Total time spent providing and/or coordinating discharge services: Time spent: Less than 30 minutes Exam Narrative: Exam Narrative: GEN: Alert and oriented, laying comfortably in bed HEENT: Pupils miotic, EOMIs bilaterally, no scleral icterus CV: RRR, No concerning murmurs R: LCTA bilaterally without concerning wheezing, air movement adequate Ext: wwp, no concerning edema Skin: No concerning skin lesions or rashes on exposed skin Neuro: Nonfocal. Ambulates halls independently. Psych: Appropriate Const: Vital Signs, click to edit/add: Vital Signs - 24 hr 11/19/22 14:11 11/19/22 14:35 11/19/22 14:40 Temperature 97.2 F L Pulse Rate 53 L 61 65 Pulse Rate [Pulse Oximeter] Respiratory Rate 14 14 14 Blood Pressure 97/48 L 98/51 L 89/48 L Blood Pressure [Le ft Arm] Pulse Oximetry 98 96 96 Oxygen Delivery Me thod OxyMask Room Air Room Air Oxygen Flow Rate 8 11/19/22 14:15 11/19/22 14:18 11/19/22 14:20 Temperature Pulse Rate 52 L 58 L 59 L Pulse Rate [Pulse Oximeter] Respiratory Rate 14 14 14 Blood Pressure 91/49 L 91/49 L 93/49 L Blood Pressure [Le ft Arm] Pulse Oximetry 100 100 99 Oxygen Delivery Me thod OxyMask OxyMask Room Air OxyMask Oxygen Flow Rate 8 8 8 11/19/22 14:24 11/19/22 14:26 11/19/22 14:30 Temperature Pulse Rate 58 L 60 49 L Pulse Rate [Pulse Oximeter] Respiratory Rate 14 14 14 Blood Pressure 90/42 L 88/46 L 109/53 L Blood Pressure [Le ft Arm] Pulse Oximetry 99 99 99 Oxygen Delivery Me thod OxyMask OxyMask OxyMask Oxygen Flow Rate 8 8 11/19/22 14:43 11/19/22 14:45 11/19/22 14:50 Temperature Pulse Rate 63 64 57 L Pulse Rate [Pulse Oximeter] Respiratory Rate 14 14 14 Blood Pressure 91/51 L 107/49 L 96/57 L Blood Pressure [Le ft Arm] Pulse Oximetry 94 95 95 Oxygen Delivery Me od Room Air Room Air Oxygen Flow Rate 11/19/22 14:55 11/19/22 15:20 11/19/22 15:35 Temperature 97.2 F L 97.2 F L 97.2 F L Pulse Rate 56 L Pulse Rate [Pulse Oximeter] 58 L 92 Respiratory Rate 14 16 16 Blood Pressure 105/54 L Blood Pressure [Le ft Arm] 94/55 L 100/54 L Pulse Oximetry 95 95 92 Oxygen Delivery Me thod Room Air Room Air Oxygen Flow Rate 11/19/22 15:50 11/19/22 16:05 11/19/22 15:05 Temperature 97.1 F L 97.1 F L 97.3 F L Pulse Rate 63 Pulse Rate [Pulse Oximeter] 58 L 58 L Respiratory Rate 16 16 16 Blood Pressure Blood Pressure [Le ft Arm] 97/56 L 94/57 L 107/56 L Pulse Oximetry 94 94 Oxygen Delivery Me thod Room Air Room Air Room Air Oxygen Flow Rate 11/19/22 17:05 11/19/22 18:05 11/19/22 19:05 Temperature 97.6 F 97.3 F L 98.2 F Pulse Rate Pulse Rate [Pulse Oximeter] 63 70 71 Respiratory Rate 16 16 16 Blood Pressure Blood Pressure [Le ft Arm] 102/56 L 109/69 104/59 L Pulse Oximetry 95 96 95 Oxygen Delivery Me thod Room Air Room Air Room Air Oxygen Flow Rate 11/19/22 20:05 11/19/22 21:05 11/19/22 19:05 Temperature 98.2 F 98 F 98.2 F Pulse Rate Pulse Rate [Pulse Oximeter] 70 71 71 Respiratory Rate 16 16 16 Blood Pressure Blood Pressure [Le ft Arm] 111/56 L 112/61 104/59 L Pulse Oximetry 94 94 95 Oxygen Delivery Me thod Room Air Room Air Room Air Oxygen Flow Rate 11/19/22 23:00 11/20/22 03:00 11/20/22 08:18 Temperature 98.9 F 98 F 98.2 F Pulse Rate Pulse Rate [Pulse Oximeter] 71 57 L 53 L Respiratory Rate 18 18 18 Blood Pressure Blood Pressure [Le ft Arm] 96/55 L 96/54 L 102/55 L Pulse Oximetry 94 95 99 Oxygen Delivery Me thod Room Air Room Air Room Air Oxygen Flow Rate 11/20/22 09:32 Temperature 98.2 F Pulse Rate 63 Pulse Rate [Pulse Oximeter] Respiratory Rate 18 Blood Pressure 105/54 L Blood Pressure [Le ft Arm] Pulse Oximetry Oxygen Delivery Me thod Oxygen Flow Rate Documenting provider has reviewed patient's vital signs: yes DS: Data Data Completed and Pending Labs on day of discharge: Labs from last 24 hours 11/20/22 11/20/22 05:45 05:45 WBC 12.57 H RBC 3.96 L Hgb 12.7 L Hct 37.4 MCV 94 MCH 32 MCHC 34 Plt Count 162 Sodium 136 Potassium 4.2 BUN 13 Creatinine 0.6 Estimated Creat Clear 70.97 Estimated GFR 104 Discharge Plan Discharge Disposition: Home, Self-Care Discharging Surgeon: Adria Mcelroy Follow-Up Appointment: One week Prescriptions: New sennosides [Senna Lax] 8.6 mg Tablet 17.2 mg PO BID PRN (Reason: constipation) Qty: 100 0RF acetaminophen 500 mg capsule 500 - 1,000 mg PO Q6H MDD 4000mg per day PRN (Reason: pain) Qty: 100 0RF oxycodone 5 mg Tablet 2.5 - 10 mg PO Q4-6H MDD 6 tabs per day PRN (Reason: Pain) Qty: 30 0RF Rx Instructions: Minimize use. Wean off and discontinue as soon as possible. Continued ascorbic acid (vitamin C) 500 mg tablet 500 mg PO DAILY aspirin 81 mg tablet,chewable 1 tab PO DAILY vitamin B complex Capsule 1 cap PO DAILY lysine 500 mg tablet 500 mg PO BID omega [id number]-[id number]-fish oil [Fish Oil] 300-1,000 mg capsule 1 cap PO DAILY phytonadione (vitamin K1) 100 mcg tablet 100 mcg PO DAILY tadalafil 10 mg tablet PRN PRN zinc sulfate 50 mg zinc (220 mg) capsule 50 mg PO DAILY potassium gluconate 595 mg (99 mg) tablet 595 mg PO DAILY vitamin E (dl, acetate) 180 mg (400 unit) capsule 180 mg PO DAILY fluorouracil [Efudex] 5 % cream 1 applic topical BID Activity Detail: Wear the sling for 6 weeks post-surgery. Take it off for comfort and for exercises. Activity: no external rotation of the operative shoulder past 0? x 6 weeks. Forward flexion and abduction of the shoulder is allowed as tolerated. Range of motion of the elbow, wrist, fingers once the block has worn off on the operative extremity 3 or more times per day. Begin physical therapy for the operative shoulder next week. Do not drive while on narcotic pain medication. Drive only when safe to do so, when you have normal use/function of the upper extremity, this will likely take 6 weeks due to wearing a sling. Minimize and discontinue the narcotic as soon as possible. Remove dressing in 1 week. Dressing is waterproof. May shower. Surgical glue covers the wound. Do not scrub the wound. Expect swelling and bruising about the shoulder and upper extremity. Use of ice/active ice without restriction. notify Orthopedics with any questions or concerns [phone]. Return to Orthopedic clinic next week for a wound check as scheduled. Return to clinic in [address] Mcelroy. Discharge Diet: Regular Patient Instructions: Acetaminophen (By mouth), Laxative, Stool Softeners (By mouth) (Doculax, Colace, Colace Clear, DSS), Oxycodone, Rapid Release (By mouth), Surgical Site Infections (DC), Shoulder Arthroplasty (DC) Forms: Work/School Release Follow-up: Tiffanie Pérez PA-C [Physician Filbert Grower] - 11/26/22 1:20 pm ([facility]) Huey Spencer MD [Primary Care Provider] - Discharge Orders: Discharge Order (Routine); Ordered 11/20/22 Ordered By: Tiffanie Pérez Consulting provider completed their portion of the discharge: Yes
== END 2022-11-20 10:46 | disposition home or self-care (01) ==
LOC: OR 09:59 → MEDSURG 10:02
PROVIDERS: PCP Family Medicine; Visit Provider Orthopaedic Surgery
PROC: 0RRJ0JZ Replacement of Right Shoulder Joint with Synthetic Substitute, Open Approach (ICD-10-PCS; CPT 23472; principal; 2022-11-19 12:00)
DX: M75.101 Unspecified rotator cuff tear or rupture of right shoulder, not specified as traumatic (principal)
CPT/HCPCS: 23472; 01638; 36415; 73030; 76942; 82565; 84132; 84295; 84520; 85027; 99100; A4565; A9270; C1713; C1776; J0330; J0690; J1100; J2370; J2704; J2795; J3010; J7120

== ENCOUNTER 2023-03-25 14:00 | Outpatient (RCR) | payer OTHER, SELFPAY ==
--- NOTE | 2022-09-02 14:11 | PT.OPE ---
PT [place] Outpatient Eval PT [facility] Outpatient Eval Start: 09/02/22 12:56 Freq: Status: Active Protocol: Document 09/02/22 13:03 LSL (Rec: 09/02/22 13:19 LSL [id number]) E-signed By Keerthi Gill PT Physical Therapy Outpatient Evaluation Insurance Information Recert Due Date 12/01/22 Insurance Name Medicare B Medical Diagnosis s/p R RCR with pending R reverse TSA Treating Diagnosis impaired ROM, weakness, pain Referring MD Mcelroy Subjective Subjective Pt. slipped and fell on a rock in March catching himself with his R arm. He had a right RC repair on 08/06/22 whcih was unsuccessful and is having a reverse TSR on 09/30/22. He has pain in his R shoulder without referral. He is R hand dominant. He is currently using a jenny system, codmans and lifting into flexion and abduction without weight to help keep things loosened up prior to his replacement, as suggested by the PA to get his shoulder as loose as possible going into the next procedure . 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 PMH: L rev TSA last year Pain Comments 12/11 Date of Last Physician Visit 08/18/22 Date of Surgery (If applicable) 08/06/22 Current Work Status Retired Precautions Therapy Limitations/Systems Review Not Limited Objective Range of Motion AROM PROM flexion 52 135 abduction 42 87 IR (HBB) L5 60 ER 47 57 Strength Not assessed Palpation bicipital tendon tender Posture protracted shoulders, forward head, neck right laterally flexed Assessment Assessment/Impression Pt. is a 72 y/o male who presents to PT to gain as much range as possible prior to his rev TSA in a month. He has poor muscular endurance and function given the failed repair but has been doing a fair amount of his own mobility exercise independently. He will benefit from passive range and therex progression to tolerance with pain management as needed until he has his next procedure and then will continue per protocol. Given his good outcome after his left reverse TSA, I suspect this one will go just as well. Primary Functional Limitations reaching away from body, lifting, moving hand behind back, Plan of Care Rehabilitation Potential Excellent Physical Therapy Goals SHORT TERM GOALS: 1. Pt. to have active range equal to passive range with gravity removed prior to procedure. USP GOALS: to be established after rev TSA Coordination/Communication With Referral Source Treatment Plan/Direct Interventions Joint Mobilization,Manual Therapy,Self-Care/Home Management,Therapeutic Exercises Frequency/Duration 2x/week 4 weeks then per protocol Patient Will Be Discharged From Therapy Completion of LTG(s),Skills Plateau,Independent w/HEP, Independently Progressing Evaluation Billing Untimed Code Treatment Minutes 20 Complexity Low Certification Information Initial Certification Date 09/02/22 Ending Certification Date 12/01/22 Provider Signature Shows Agreement With POC & Medical Necessity Physician Signature & Date Requested Please Sign/Date Here Physician Comment/Change : Physician NPI Number #
--- NOTE | 2022-12-03 11:50 | PT.OPDN ---
PT [facility] Daily Note PT [facility] Outpatient Daily Note Start: 09/02/22 12:56 Freq: Status: Active Protocol: Document 12/03/22 10:38 BMS (Rec: 12/03/22 11:50 BMS [id number]) E-signed By Jody Arciniega, PT PT OP Daily Progress Note Visit Information Note Type Daily Note,Re-Evaluation Visit Number [id number] Insurance Authorized Visits no auth required Physician Authorized Visits eval & treat Insurance Information Recert Due Date 01/01/23 Insurance Name Medicare B Medical Diagnosis R reverse TSA 11/19/22 s/p R RCR Treating Diagnosis impaired ROM, weakness, pain Referring MD Mcelroy Subjective Subjective doing so much better this time around. havent really had to use any pain meds last few days, really following my restrictions. Pain Comments 5/10 Precautions Treatment Precautions/Contraindications active range of motion in forward flexion and abduction as tolerates. No external rotation greater than 0 degrees for 6 weeks. Continue to wear sling x 6 weeks; may come out of sling to work on elbow ROM and when relaxing at home. per note Tiffanie JORDAN 12/01/22 R reverse TSA 11/19/22 hx L reverse TSA Home Exercise Home Exercise Comments AVOID ER >0 6 WEEKS POSTOP Access Code: [email or web address] URL: [email or web address] Date: 12/03/2022 Prepared by: Jody Arciniega Exercises Seated Scapular Retraction - 1 x daily - 5 x weekly - 1-3 sets - 10-20 reps - 5-10 sec hold Seated Shoulder Flexion AAROM with Michael Behind - 1 x daily - 5 x weekly - 1-3 sets - 10- 20 reps - 5-10 sec hold Supine Shoulder Flexion with Dowel to 90 - 1 x daily - 5 x weekly - 1-3 sets - 10-20 reps - 5-10 sec hold Seated Forearm Pronation and Supination AROM - 1 x daily - 5 x weekly - 1-3 sets - 10-20 reps - 5-10 sec hold Supine Elbow Flexion Extension AROM - 1 x daily - 5 x weekly - 1-3 sets - 10-20 reps - 5- 10 sec hold Objective Other/Pertinent Objective REEVAL 15 min R shoulder AROM/PROM Flex 68/85 Abduct 50/60 ER -15/0 IR trochanter. Elbow flex WNl, ext -15/-5 Capillary refill ok, secured entrance monitor 75% of L. Edema and ecchymosis noted at R pec and through shoulder girdle, also on anterolateral arm. Incision covered with surgical glue does not appear to be weeping, redness appropriate to healing phase. No signs of infection noted in area. Patient Instructed in Risks/Benefits Yes Therapeutic Exercise Therapeutic Exercise Minutes (minutes) 20 Therapeutic Exercise: To Restore Access Code: [email or web address] Functional Status URL: [email or web address] Date: 12/03/2022 Prepared by: Jody Arciniega Exercises Seated Scapular Retraction - 1 x daily - 5 x weekly - 1-3 sets - 10-20 reps - 5-10 sec hold Seated Shoulder Flexion AAROM with Michael Behind - 1 x daily - 5 x weekly - 1-3 sets - 10- 20 reps - 5-10 sec hold Supine Shoulder Flexion with Dowel to 90 - 1 x daily - 5 x weekly - 1-3 sets - 10-20 reps - 5-10 sec hold Seated Forearm Pronation and Supination AROM - 1 x daily - 5 x weekly - 1-3 sets - 10-20 reps - 5-10 sec hold Supine Elbow Flexion Extension AROM - 1 x daily - 5 x weekly - 1-3 sets - 10-20 reps - 5- 10 sec hold in clinic also AROM/AAROM/PROM within tissue restraints and patient pain level to guide Manual Therapy Techniques Manual Therapy Minutes (minutes) 12 Manual Therapy Techniques decongestive to pectoral and arm, gentle STM MFR to arm and shoulder complex in reclined with pillow under R arm to prevent extension. Other Interventions Provided Other Modalities Provided declines ice, will ice at home . Treatment Minutes Untimed Code Treatment Minutes 15 Timed Code Treatment Minutes 32 Total Treatment Time 47 Billing Units Manual Therapy Units 1 Therapeutic Exercise Units 1 Re-Evaluation Units 1 Assessment/Impression Assessment/Impression Patient returns s/p RIGHT reverse TSA performed 11/19/22. He stayed one night in hospital, was DC to home next day. He used oxycodone only first few days , has been icing consistently (now in AM and afternoon, has not had to ice in middle of night for a few days). Was taking acetaminophen until 2 days ago . Had followup with ortho PA and was visited in hospital by both surgeon and ortho PA, which patient is quite grateful for. Per patient recovery is going quite well which he feels is largely due to pre-op PT and home program. Please see objective section for measurements. Patient is appropriate for skilled physical therapy to address ROM deficiets, strengthening as able by phase of healing, and return to function according to healing and TSA protocol within ortho guidelines. Plan of Care Physical Therapy Goals SHORT TERM GOALS: 1. Pt. to have active range equal to passive range with gravity removed prior to procedure. [facility] GOALS: to be established after rev TSA Daily Plan of Care Continue per POC Daily Plan of Care Comments Ongoing POC to consist of therex, manual therapy with modalities reverse TSA protocol and guidelines Recertification Information Recertification Start Date 12/02/22 Recertification Due Date 01/01/23 Reasons to Continue Skilled Therapy s/p RIGHT reverse TSA 11/19/22 loss of active and passive ROM , functional strength, edema and bruising noted, compensatory patterns for eating, dressing and ADL/IADL tasks Rehabilitation Potential excellent - very motivated, has recovered well from reverse TSA on contralateral shoulder Continued Plan of Care and Interventions ther ex, manual therapy, modalities prn for pain, mobility and edema, poss taping for pain and edema, ther activity and self care for modifications to ADL, IADLs, lifting techniques when appropriate and functional strength within surgical restrictions. Provider Signature Shows Agreement With POC & Medical Necessity Physician Comment/Change Comment or Changes
--- NOTE | 2023-02-22 10:08 | PT.OPE ---
PT [place] Outpatient Eval PT [facility] Outpatient Eval Start: 09/02/22 12:56 Freq: Status: Active Protocol: Document 02/18/23 17:17 BMS (Rec: 02/18/23 17:17 BMS [id number]) E-signed By Jody Arciniega PT Physical Therapy Outpatient Evaluation Insurance Information Recert Due Date 03/21/23 Insurance Name Medicare B Medical Diagnosis Add 02/17/23 B hip bursitis R reverse TSA 11/19/22 s/p R RCR Treating Diagnosis M25.551, M25.552 B hip pain L LE weakness fM25.651 & M25. 652 shoulder impaired ROM, weakness, pain Referring MD Mcelroy Subjective Subjective pain has been going on maybe 8 -10 years since before I retired from [employer]. hurts here (points to lateral hips B) and some here (lateral thigh) also knees, L more than right ( patellar tendon) blanca when I go up stairs. hips worst with standing so much that I now look for a place to sit if I am having conversation or have to stand a few minutes. had scope (one of the early ones in the 1970s) on R knee they said it was just a sprain so think I favored it. 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 step ups decreased strength and coordination seated R LE grossly 5/5. Left strength deficits at hip flex, quad, HS at 4/5. notes pain and discomfort with standing necessitating need jacques= Palpation tenderness and restrictions noted through piriformis and glute, TFL. joint mobility R WNL, L slight limitation in passive hip mobility of femur on acetabulum. also tight through lumbar region, into adductors and HS Balance & Gait slight forward flex through trunk with head forward, slightly wider base. Posture protracted shoulders, forward head, neck right laterally flexed Sensation/Reflexes appear L=R quad, achilles Other/Pertinent Objective see eval Functional Test Performed & Score LEFS = no difficulty with tasks but does demo significant difficulty with simple squat requiring shift to R Assessment Assessment/Impression Patient remains very pleasant, is referred today by same MD for new complaint of B hip bursitis. He reports ongoing lateral hip pain B at glute, piriformis and TFL into ITB. R lumbar does not extend as smoothly as L and R trunk SB severely limited. He does present also with hip weakness and reports constant pain that is fatiguing and distracting, limits distance walking, squatting and attaining and maintaining awkward positions for car work . He has hx of knee scope and told him it was strained. He presents today with weakness with repetitive actions blanca on L, with squats and pain tightness with standing in field. Strength deficits include L hip flex, quad and HS. Denies red flag signs as well as numbness, tingling. quite tender in glute/ piriformis and also has limited hip rotation. He did respond well to today's treatment and will put chart on hold 2-4 weeks. if he has not return within 60 days may DC chart. He is appropriate for skilled physical therapy to advance function with less pain, to return to swimming and training for fitness and management of aging body, and top perform maintenance activities around the home. 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 including scrubbing, grocery shopping and lifting w R UE (dominant) 4) Pt demo ability to return to prior fitness activities including modified swimming for management of concurrent health concerns 5) Pt report ability to sleep through the night without pain reducing medication Coordination/Communication With Referral Source Treatment Plan/Direct Interventions Joint Mobilization,Manual Therapy,Self-Care/Home Management,Therapeutic Exercises Frequency/Duration 2x/week 4 weeks then per protocol Patient Will Be Discharged From Therapy Completion of LTG(s),Skills Plateau,Independent w/HEP, Independently Progressing Evaluation Billing Untimed Code Treatment Minutes 23 Complexity Low Certification Information Initial Certification Date 09/02/22 Ending Certification Date 12/01/22 Provider Signature Shows Agreement With POC & Medical Necessity Physician Signature & Date Requested Please Sign/Date Here Physician Comment/Change : Physician NPI Number #
== END 2023-03-26 11:16 | disposition home or self-care (01) ==
PROVIDERS: PCP Family Medicine; Visit Provider Orthopaedic Surgery
DX: M19.011 Primary osteoarthritis, right shoulder (principal); M70.71 Other bursitis of hip, right hip; M70.72 Other bursitis of hip, left hip; M25.551 Pain in right hip; M25.552 Pain in left hip; Z96.619 Presence of unspecified artificial shoulder joint; Z98.890 Other specified postprocedural states; M25.651 Stiffness of right hip, not elsewhere classified; M25.652 Stiffness of left hip, not elsewhere classified; R53.1 Weakness; Z74.09 Other reduced mobility; Z51.89 Encounter for other specified aftercare
CPT/HCPCS: 97110; 97140; 97161; 97164; 97165

== ENCOUNTER 2025-01-09 06:23 | Outpatient (CLI) | payer OTHER, SELFPAY ==
[2025-01-09 07:09] VITALS: BP 130/59; PULSE 56; RESP 16; TEMP 36.3; O2SAT 97
--- NOTE | 2025-01-09 07:38 | PM.ORPRC ---
Procedure Note Date of procedure: 01/09/25 Procedure: PREOPERATIVE DIAGNOSIS: Left hip abductor tendinopathy/greater trochanteric bursitis POSTOPERATIVE DIAGNOSIS: Left hip abductor tendinopathy/greater trochanteric bursitis NAME OF OPERATION: Percutaneous tenotomy SURGEON: Adria Mcelroy MD DINING SERVER: Lizette Mahan PA-C ANESTHESIA: Local ESTIMATED BLOOD LOSS: 2 mL. COMPLICATIONS: None. SPECIMENS: None. DRAINS: None. PREOPERATIVE ANTIBIOTICS: None INDICATIONS: The patient is a 74-year-old with a history of left hip pain secondary to the above diagnoses. Despite appropriate non operative management, they continue to have symptoms. Operative intervention was recommended. The risks, benefits and expected outcomes were discussed in detail. These included but were not limited to: Infection, bleeding, injury to blood vessel or nerve, venous thromboembolism. All questions were answered to their satisfaction. PROCEDURE: The patient was placed in the lateral decubitus position. The left hip was imaged in the long and short axes with the ultrasound transducer. Normal acoustic landmarks were identified. We then sterilely prepped and draped the skin, and used a sterile probe cover with sterile gel. Local anesthesia was established with 10 mL of a solution containing 2 % lidocaine without epinephrine, 0.5% Marcaine without epinephrine and sodium bicarbonate. An 11 blade was used to incise the skin. The Tenex TX 2 micro tip was used to treat the abductor tendon for a total of 3 minutes and 30 seconds. The incision was Steri-Stripped closed. A dry dressing was applied. Sponge and needle counts were correct x2. The patient tolerated the procedure well. There were no apparent complications. They were discharged to home in satisfactory condition. PLAN: The patient may weightbear as tolerates. Ice, Tylenol and ibuprofen can be used for discomfort. They may ramp up activity as the hip will allow. They will follow up in the office in 6 weeks to assess their progress.
[2025-01-09 07:45] VITALS: BP 121/58; PULSE 54; RESP 16; O2SAT 98
== END 2025-01-09 07:59 | disposition home or self-care (01) ==
PROVIDERS: PCP Family Medicine; Visit Provider Orthopaedic Surgery
DX: M70.62 Trochanteric bursitis, left hip (principal)
CPT/HCPCS: 27006; 76942; J0665

== ENCOUNTER 2025-01-23 06:30 | Outpatient (CLI) | payer OTHER, SELFPAY ==
[2025-01-23 07:11] VITALS: BP 119/32; PULSE 54; RESP 16; O2SAT 97
[2025-01-23 07:35] VITALS: BP 120/62; PULSE 55; RESP 16; O2SAT 98
--- NOTE | 2025-01-23 07:35 | P.ORPRC_ITS ---
Procedure Note Date of procedure: 01/23/25 Procedure: PREOPERATIVE DIAGNOSIS: Right hip abductor tendinopathy/greater trochanteric bursitis POSTOPERATIVE DIAGNOSIS: Right hip abductor tendinopathy/greater trochanteric bursitis NAME OF OPERATION: Percutaneous tenotomy SURGEON: Adria Mcelroy MD RECOVERY ANALYST: Lizette Mahan PA-C ANESTHESIA: Local ESTIMATED BLOOD LOSS: 2 mL. COMPLICATIONS: None. SPECIMENS: None. DRAINS: None. PREOPERATIVE ANTIBIOTICS: None INDICATIONS: The patient is a 74-year-old with a history of right hip pain secondary to the above diagnoses. Despite appropriate non operative management, they continue to have symptoms. Operative intervention was recommended. The risks, benefits and expected outcomes were discussed in detail. These included but were not limited to: Infection, bleeding, injury to blood vessel or nerve, venous thromboembolism. All questions were answered to their satisfaction. PROCEDURE: The patient was placed in the lateral decubitus position. The right hip was imaged in the long and short axes with the ultrasound transducer. Normal acoustic landmarks were identified. We then sterilely prepped and draped the skin, and used a sterile probe cover with sterile gel. Local anesthesia was established with 10 mL of a solution containing 2 % lidocaine without epinephrine, 0.5% Marcaine without epinephrine and sodium bicarbonate. An 11 blade was used to incise the skin. The Tenex TX 2 micro tip was used to treat the abductor tendon for a total of 3 minutes and 58 seconds. The incision was Steri-Stripped closed. A dry dressing was applied. Sponge and needle counts were correct x2. The patient tolerated the procedure well. There were no apparent complications. They were discharged to home in satisfactory condition. PLAN: The patient may weightbear as tolerates. Ice, Tylenol and ibuprofen can be used for discomfort. They may ramp up activity as the hip will allow. They will follow up in the office in 6 weeks to assess their progress.
== END 2025-01-23 07:46 | disposition home or self-care (01) ==
PROVIDERS: PCP Family Medicine; Visit Provider Orthopaedic Surgery
DX: M70.61 Trochanteric bursitis, right hip (principal)
CPT/HCPCS: 27006; 76942

== ENCOUNTER 2025-01-25 11:00 | Outpatient (RCR) | payer OTHER, SELFPAY ==
--- NOTE | 2024-12-07 12:12 | PT.OPE ---
[facility] Eval Start: 12/07/24 08:17 Freq: Status: Active Protocol: Document 12/07/24 08:17 BMS (Rec: 12/07/24 11:59 BMS [id number]) E-signed By Jody Arciniega PT Physical Therapy Outpatient Evaluation Insurance Information Recert Due Date 03/06/25 Insurance Name Medicare B Provider Fax Number internal Medical Diagnosis S76.311A strain of muscle, fascia and tendon of the posterior muscle group at thigh level, right thigh. Treating Diagnosis L shoulder pain M25.512, stiffness of left shoulder M25 .612 M99.07 shoulder girdle weakness abnormal gait R 26.89 S76.301A [convert to ICD-9-CM ] Unspecified injury of muscle, fascia and tendon of the posterior muscle group at thigh level, right thigh, initial encounter Referring MD Adria Mcelroy MD Subjective Subjective 1) LEFT shoulder ? had hx of reverse total shoulder 2020, did recover fairly well but reinjured ~ 1 year ago when attempting to rise from floor. He notes restrictions in ROM and weakness resulting in difficulty with overhead activity and with prolonged positioning and use. 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 He has not been able to return to level of swimming he had hoped to for fitness and management of chronic conditions. 2) RIGHT hamstring strain ~ 4 mos ago. Pt states he was loading heavy materials to a alpesh and felt ?an instant twang? pain just proximal to posterior knee. Then spent several days in car driving back from [place] to [place] and ?it froze up?. Reports ongoing pain from proximal calf to buttock. Denies paresthesias, edema, ecchymosis. States is very very slowly a bit better but still limits mobility and hinders gait blanca after sitting prolonged. Limited evaluation of this today due to 2 body parts in 60 min appt. 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 B DF to neutral, more resistance needs to be overcome for R side and pulls up into back of buttock. Shoulder R/L Flex: 110/120 (supine to 140 after MT and mobs) Abduct 160 B ER 42/45 IR L4/ mid-glute Elbows and wrists WFL. Knee able to obtain WFL flex. R knee extension eventually to 0 degrees full ext however is quite guarded and slow to allow ext past lacking 30. Prone knee flex WNL Strength B LE hip flex, quad, HS, DF, chanelle, inv, 5/5 HS in prone = Pain and spasm to manual resistance, primary recruitment is medial HS. Shoulder R flex and abduct 5/5 , ER 3-/5, IR 4+/5, bicep tricep 5/5 L shoulder affected: flex 4/5 (significant cueing for stabilize through scap prior to intervention), abduct 4/5, ER 4-/5, IR 4+/5, bicep/tricep 5/5. Palpation Tenderness anterior shoulder pec, to ant humeral component, into bicep and delt. Myofascial restrictions periscap impact functional motion B, more so on L. Mod tender through R hamstring blanca noted with medial. Balance & Gait wider base, lacks full hip ext and pushoff on R, mild to mod antalgia. loss of terminal knee ext in gait. balance not assessed this date due to time. Posture B anterior rolling of scap, abducted scap and increased thoracic kyphossi (flexible, able to correct) mild to mod head forward. 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 He is well known to this therapist through previous episodes of care for hip pain and B shoulder RSA. He also notes worsening B knee pain ? did have injections recently and is disappointed the left has not responded as hoped. Danny is retired from [employer], is in process of preparing [employer] for sale and building his home in [place] (he is constructing by himself). Plans to move permanently to [place] this spring/early summer. Past medical hx + for melanoma on R UE, B RSA, hamstring strain. 1) LEFT shoulder ? had hx of reverse total shoulder 10/26/ 2021, did recover fairly well but reinjured ~ 1 year ago when attempting to rise from floor. He notes restrictions in ROM and weakness resulting in difficulty with overhead activity and with prolonged positioning and use. 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 He has not been able to return to level of swimming he had hoped to for fitness and management of chronic conditions. 2) RIGHT hamstring strain ~ 4 mos ago. Pt states he was loading heavy materials to a alpesh and felt ?an instant twang? pain just proximal to posterior knee. Then spent several days in car driving back from [place] to [place] and ?it froze up?. Reports ongoing pain from proximal calf to buttock. Denies paresthesias, edema, ecchymosis. States is very very slowly a bit better but still limits mobility and hinders gait blanca after sitting prolonged. Limited evaluation of this today due to 2 body parts in 60 min appt. 3) Patient endorses lateral L knee pain also along joint line and patella. This is not on original order but did recently have B injections to knee Patient presents today with pain and restricted mobility of L shoulder and R hamstring. Weakness and limited ROM noted in B shoulder as well as tissue mobility restrictions chevy-scap, pec, and atrophy of mm in B upper arm despite patients now regular resistance training. Also noted smaller appearing L thigh and calf compared to right but not objectively measured this date due to time . Patient responded well to initial treatment of shoulder with improved motion and better scapulohumeral mechanics, issued HEP for same . HS brief STM and assessment of medial, lateral and unified hamstring resulting in HS cramp. Further assess of HS knee and hip to follow. Patient is appropriate for skilled physical therapy for range and tissue mobility, functional strength, gait mechanics, shoulder and HS mobility and pain management and return to prior level of function including minimally restricted use of B UE in home and self-work. Primary Functional Limitations pain with sitting/standing/ walking HS, altered gait pattern limited working overhead with B shoulder, worse left. Loss of motion L shaggy RIDER Plan of Care Rehabilitation Potential Excellent Rehabilitation Potential Comments past episodes of care has been very motivated and compliant Physical Therapy Goals 1) Patient to be independent with home ex program for improved ROM and functional strength. 2) Pt report pain < 2/10 3) Pt report improved mobility of HS and R LE for improved position transition, tissue mobility and gait without stiffness and pain 4) Pt demo shoulder ROM and strength overhead to improve positional tolerance and ability to work overhead on house and car. 5) Pt demo activity tolerance with B shoulder and LE to resume ability to build own home and return to swimming to maintain activity as active 74 yo male. Coordination/Communication With Referral Source Treatment Plan/Direct Interventions Electrical Stimulation,Heat, Ice/Cold/Vasopneumatic,Manual Therapy,Neuromuscular Re-ed, Orthotics/Braces,Self-Care/ Home Management,Therapeutic Activities,Therapeutic Exercises,Ultrasound Frequency/Duration 1x/ week x 6 weeks, poss extend should goals not be reached at that time to 1x/ week thorugh end of february Patient Will Be Discharged From Therapy Completion of LTG(s),Skills Plateau,Independent w/HEP, Independently Progressing Evaluation Billing Untimed Code Treatment Minutes 40 Complexity Low Certification Information Initial Certification Date 12/07/24 Ending Certification Date 03/06/25 Provider Signature Required Yes Provider Signature Shows Agreement With POC & Medical Necessity Physician NPI Number Write NPI# Here Physician Comment/Change : Physician Signature & Date Requested Please Sign/Date Here
== END 2025-05-25 23:59 | disposition home or self-care (01) ==
PROVIDERS: PCP Family Medicine; Visit Provider Orthopaedic Surgery
DX: S76.311D Strain of muscle, fascia and tendon of the posterior muscle group at thigh level, right thigh, subsequent encounter (principal); M25.512 Pain in left shoulder; M25.612 Stiffness of left shoulder, not elsewhere classified; M99.07 Segmental and somatic dysfunction of upper extremity; R26.89 Other abnormalities of gait and mobility; Z51.89 Encounter for other specified aftercare
CPT/HCPCS: 97110; 97140; 97161